=== PATIENT | male | born 1980 | race Hispanic/Latino ===

== ENCOUNTER 2017-10-18 23:55 | Emergency (ER) | payer OTHER ==
[2017-10-19] MEDS ORDERED: ONDANSETRON ODT 4 MG TAB ONE (00:04)
[2017-10-19] MEDS ORDERED: ASPIRIN 325 MG TABLET ONE (00:04)
[2017-10-19] MEDS ORDERED: FAMOTIDINE/PF 20 MG/2 ML VIAL IV ONE (00:06)
[2017-10-19 00:29] LABS: INR 1.02 (0.85-1.15); PARTIAL THROMBOPLASTIN TIME 25.2 SEC (26.3-35.5); POTASSIUM 3.8 mmol/L (3.5-5.1); PROTHROMBIN TIME 10.7 SEC (9.6-11.6)
[2017-10-19 00:39] LABS: BASOPHILS % (AUTO) 0.7 % (0.0-5.0); HEMATOCRIT 47.9 % (42-54); LYMPHOCYTES % (AUTO) 38.5 % (21.0-51.0); MEAN CORPUSCULAR HEMOGLOBIN 30.4 pg (27.0-33.0); MEAN CORPUSCULAR HGB CONC 35.1 g/dL (32.0-36.0); MEAN CORPUSCULAR VOLUME 86.7 fL (79-99); MONOCYTES % (AUTO) 6.4 % (3.0-13.0); NEUTROPHILS % (AUTO) 52.4 % (40.0-77.0); PLATELET COUNT (AUTO) 264 K/uL (130-400); RED BLOOD CELL COUNT(AUTO) 5.53 MIL/uL (4.50-6.20); RED CELL DISTRIBUTION WIDTH 12.6 % (11.0-15.5); WHITE BLOOD COUNT (AUTO) 8.6 K/uL (4.8-10.8)
[2017-10-19 00:44] LABS: BILIRUBIN,TOTAL 0.4 mg/dL (0.2-1.0); CREATINE KINASE MB 0.8 ng/mL (0.5-3.6); TOTAL PROTEIN, SERUM 7.9 g/dL (6.0-8.3)
[2017-10-19] MEDS ORDERED: SODIUM CHLORIDE 0.9% 1000ML 1,000 ML IV ONE (02:04)
[2017-10-19 02:15] LABS: APPEARANCE,URINE Clear (CLEAR); BILIRUBIN,URINE Negative (NEGATIVE); COLOR,URINE Yellow (YELLOW); GLUCOSE, URINE (UA) >=1000 mg/dL (NEGATIVE); KETONES,URINE Trace mg/dL (NEGATIVE); LEUKOCYTE ESTERASE ,URINE Negative (NEGATIVE); NITRATE,URINE Negative (NEGATIVE); OCCULT BLOOD,URINE Negative (NEGATIVE); PROTEIN,URINE Negative (NEGATIVE)
[2017-10-19 02:28] LABS: BACTERIA,URINE None Seen /HPF (None Seen); RBC,URINE None Seen /HPF (0-1); SQUAMOUS EPITHELIAL CELL,UR Rare /LPF (0-2); WBC,URINE None Seen /HPF (0-1); YEAST,URINE BUDDING None Seen /HPF (None Seen)
== END 2017-10-19 03:22 | disposition home or self-care (01) ==
LOC: EDH 23:55
DX: E11.65 Type 2 diabetes mellitus with hyperglycemia (principal); R07.0 Pain in throat; R07.9 Chest pain, unspecified
CPT/HCPCS: 36415; 71045; 80053; 81001; 82550; 82553; 83690; 83874; 84484 ×2; 85025; 85610; 85730; 93005 ×2; 94761; 96361; 96374; 99285; J3490; J7030

== ENCOUNTER 2018-09-16 23:36 | Emergency (ER) | payer OTHER ==
[2018-09-17] MEDS ORDERED: KETOROLAC TROMETHAMINE 60 MG/2 ML VIAL ONE (00:10)
[2018-09-17] MEDS ORDERED: ONDANSETRON ODT 4 MG TAB ONE (00:11)
[2018-09-17] MEDS ORDERED: CYCLOBENZAPRINE HCL 10 MG TABLET ONE (00:11)
[2018-09-17] MEDS ORDERED: MORPHINE SULFATE 5 MG/ML VIAL ONE (00:14)
== END 2018-09-17 00:55 | disposition home or self-care (01) ==
LOC: EDH 23:36
DX: M54.5 Low back pain (principal); E11.9 Type 2 diabetes mellitus without complications
CPT/HCPCS: 72100; 96372 ×2; 99283; J1885; J2270

== ENCOUNTER 2023-06-20 00:29 | Emergency (ER) | payer OTHER ==
[~2023-06-20] VITALS: Ht 144.8 cm; Wt 67.1 kg
[2023-06-20] MEDS ORDERED: DIAZEPAM 5 MG/ML 2 ML SYG IVP ONE (01:30)
[2023-06-20] MEDS ORDERED: KETOROLAC 30MG VIAL (30MG/ML) IVP ONE (01:30)
[2023-06-20] MEDS ORDERED: FAMOTIDINE 20MG VIAL IV ONE (01:30)
[2023-06-20] MEDS ORDERED: LACTATED RINGERS 1000ML 1,000 ML IV ONE (01:30)
[2023-06-20] MEDS ORDERED: METOCLOPRAMIDE 10 MG/2 ML VIAL IVP ONE (01:30)
[2023-06-20] MEDS ORDERED: MELO-106 PO (02:25)
[2023-06-20] MEDS ORDERED: CYCL10TA16 PO (02:25)
[2023-06-20 02:47] VITALS: BP 137/75; PULSE 88; RESP 17; O2SAT 99
== END 2023-06-20 02:48 | disposition home or self-care (01) ==
LOC: EDH 00:29
DX: M54.42 Lumbago with sciatica, left side (principal); E11.9 Type 2 diabetes mellitus without complications
CPT/HCPCS: 99284; 96374; 96375; 72100; J7120; J3490; J3360; J1885; J2765